=== PATIENT | female | born 1960 | race Caucasian/White ===

== ENCOUNTER → 2017-06-25 | Outpatient (CLI) | payer BC | LOC: RAD 10:30 | DX: R06.02 Shortness of breath (principal); R79.89 Other specified abnormal findings of blood chemistry ==

== ENCOUNTER → 2021-01-01 | Outpatient (CLI) | payer BC ==
[2021-01-01 13:12] LABS: D-DIMER 0.76 mg/L FEU (0.15-0.50)
== END ==
LOC: LAB 12:37 → RAD 12:37
PROVIDERS: Family Medicine
DX: R07.9 Chest pain, unspecified (principal); R79.89 Other specified abnormal findings of blood chemistry
CPT/HCPCS: Q9967

== ENCOUNTER → 2022-05-22 | Outpatient (CLI) | payer OTHER | LOC: RAD 07:11 | DX: E88.89 Other specified metabolic disorders (principal); R74.8 Abnormal levels of other serum enzymes ==